=== PATIENT | male | born 1955 | race Two or more races ===

== ENCOUNTER 2017-07-03 11:17 | Outpatient (CLI) | payer MEDICARE, OTHER ==
[~2017-07-03 11:17] MED LIST: ASPI-495 PO; ATOR10TA PO; CALC-126 PO; CETI10CA PO; DARU600T2 PO; ETRA200T PO; FINA5TAB11 PO; HYDR50TA3 PO; LANS30CA54 PO; LOSA50TA3 PO; METF500T PO; PREG75CA PO; RALT400T PO; RITO100T PO; TERA1CAP11 PO; VALA100026 PO; VITA1CAP29 PO
== END 2017-07-03 23:59 | disposition home or self-care (01) ==
LOC: RAD 11:17
DX: Z01.818 Encounter for other preprocedural examination (principal)
CPT/HCPCS: 71046

== ENCOUNTER 2017-10-10 13:21 | Outpatient (CLI) | payer MEDICARE, OTHER | END 2017-10-10 23:59 | disposition home or self-care (01) | LOC: CARD 13:21 | DX: M79.662 Pain in left lower leg (principal) | CPT/HCPCS: 93971-TC ==

== ENCOUNTER 2017-11-20 15:52 | Outpatient (CLI) | payer MEDICARE, OTHER | END 2017-11-20 23:59 | disposition home or self-care (01) | LOC: RAD 15:52 | DX: M25.561 Pain in right knee (principal); M25.562 Pain in left knee | CPT/HCPCS: 73562 ==

== ENCOUNTER 2018-05-29 12:45 | Outpatient (CLI) | payer MEDICARE, OTHER ==
[2018-05-29 12:50] VITALS: BP 122/75
[2018-05-29] MEDS ORDERED: DULO30CA2 PO (14:32)
[2018-05-29] MEDS ORDERED: FERR325T23 PO (14:32)
[2018-05-29] MEDS ORDERED: DARU1TAB PO (14:32)
[2018-05-29] MEDS ORDERED: POTA10CA43 PO (14:32)
[2018-05-29] MEDS ORDERED: DOLU50TA PO (14:32)
[2018-05-29] MEDS ORDERED: LISI10TA5 PO (14:47)
[2018-05-29] MEDS ORDERED: TEST200V3 IM (14:47)
[2018-05-29] MEDS ORDERED: HYDR-4209 PO (14:50)
[2018-05-29] MEDS ORDERED: FLUN25SP BNOSTRILS (14:55)
[2018-05-29] MEDS ORDERED: DICL100G16 TP (14:55)
[2018-05-29] MEDS ORDERED: INSU100I35 SQ (14:55)
== END 2018-05-29 23:59 | disposition home or self-care (01) ==
LOC: MSC 12:45
PROVIDERS: ATTEND Internal Medicine Gastroenterology
DX: K92.1 Melena (principal); I10 Essential (primary) hypertension; E11.8 Type 2 diabetes mellitus with unspecified complications; Z79.84 Long term (current) use of oral hypoglycemic drugs; Z79.82 Long term (current) use of aspirin

== ENCOUNTER 2018-05-30 09:03 | Day surgery (SDC) | payer MEDICARE, OTHER ==
[~2018-05-30 09:03] MED LIST changes: +ANESTHESIA TRAY IN PYXIS 1 EA TRAY MC ONE; -CETI10CA PO; +DARU1TAB PO; -DARU600T2 PO; +DICL100G16 TP; +DOLU50TA PO; +FERR325T23 PO; -FINA5TAB11 PO; +FLUN25SP BNOSTRILS; +HYDR-4209 PO; -HYDR50TA3 PO; +INSU100I35 SQ; +LISI10TA5 PO; +POTA10CA43 PO; -PREG75CA PO; -RALT400T PO; -RITO100T PO; +TEST200V3 IM; -VALA100026 PO
[2018-05-30 09:43] LABS: BASOPHILS # (AUTO) 0.1 /CMM (0.0-0.2); BASOPHILS % (AUTO) 1.2 % (0.0-2.0); EOSINOPHILS % (AUTO) 1.8 % (0.0-6.0); HEMATOCRIT 40 % (39-51); HEMOGLOBIN 13.9 g/dL (13.5-17.5); LYMPHOCYTES # (AUTO) 4.9 /CMM (0.8-4.8); LYMPHOCYTES % (AUTO) 68.3 % (20.0-44.0); MEAN CORPUSCULAR HGB CONC 35 g/dl (31.0-36.0); MEAN CORPUSCULAR VOLUME 97 fL (80-96); MONOCYTES # (AUTO) 0.6 /CMM (0.1-1.30); MONOCYTES % (AUTO) 8.5 % (2.0-12.0); NEUTROPHILS # (AUTO) 1.4 /CMM (1.8-8.9); NEUTROPHILS % (AUTO) 20.2 % (43.0-81.0); PLATELET COUNT (AUTO) 192 /CMM (150-450); RED BLOOD CELL COUNT(AUTO) 4.18 MIL/uL (4.5-6.0); WHITE BLOOD COUNT (AUTO) 7.1 K/uL (4.3-11.0)
[2018-05-30 09:56] LABS: CALCIUM, SERUM 9.1 mg/dL (8.5-10.1); CREATININE 0.9 mg/dL (0.6-1.3); POTASSIUM 3.5 mmol/L (3.5-5.1)
[2018-05-30] MEDS ORDERED: ANESTHESIA TRAY IN PYXIS 1 EA TRAY MC ONE (09:56)
[2018-05-30 10:01] LABS: ALBUMIN 4.3 g/dL (3.4-5.0); BILIRUBIN,TOTAL 0.9 mg/dL (0.2-1.0); TOTAL PROTEIN, SERUM 8.1 g/dL (6.4-8.2)
[2018-05-30] MEDS ORDERED: FENTANYL PF 100MCG/2ML AMPUL ONE (11:03)
[2018-05-30] MEDS ORDERED: SIMETHICONE SUSP 40 MG/0.6 ML BOTTLE ONE (11:46)
== END 2018-05-30 13:00 | disposition home or self-care (01) ==
LOC: DS 09:03
PROVIDERS: ATTEND Internal Medicine Gastroenterology
DX: K57.30 Diverticulosis of large intestine without perforation or abscess without bleeding (principal); K64.4 Residual hemorrhoidal skin tags; D13.1 Benign neoplasm of stomach; B20 Human immunodeficiency virus [HIV] disease; E11.9 Type 2 diabetes mellitus without complications; I10 Essential (primary) hypertension; N40.0 Benign prostatic hyperplasia without lower urinary tract symptoms; Z94.7 Corneal transplant status; Z88.0 Allergy status to penicillin; Z88.8 Allergy status to other drugs, medicaments and biological substances
CPT/HCPCS: 36415; 43239; 45378; 71045; 80053; 82962 ×2; 85025; 85610; 85730; 88305; 88313; 88342; 93005; J2704; J3010

== ENCOUNTER 2018-06-05 11:12 | Outpatient (CLI) | payer MEDICARE, OTHER ==
[~2018-06-05 11:12] MED LIST changes: -ANESTHESIA TRAY IN PYXIS 1 EA TRAY MC ONE
[2018-06-05 11:13] VITALS: BP 113/62
== END 2018-06-05 23:59 | disposition home or self-care (01) ==
LOC: MSC 11:12
PROVIDERS: ATTEND Internal Medicine Gastroenterology
DX: K29.70 Gastritis, unspecified, without bleeding (principal); K64.4 Residual hemorrhoidal skin tags; K57.30 Diverticulosis of large intestine without perforation or abscess without bleeding